=== PATIENT | female | born 1960 | race Caucasian/White ===

== ENCOUNTER 2016-04-10 10:51 | Day surgery (SDC) | payer OTHER ==
[2016-04-10] MEDS ORDERED: PEPCID ONE (11:17)
[2016-04-10] MEDS ORDERED: LR 1,000 ML ONE ×2 (11:17→15:42)
[2016-04-10] MEDS ORDERED: REGLAN ONE (11:17)
[2016-04-10] MEDS ORDERED: KEFZOL 1 GM/D5W 50 ML ONE (11:18)
[2016-04-10] MEDS ORDERED: TRANSDERM-SCOP ONE (11:33)
[2016-04-10] MEDS ORDERED: NAROPIN 0.5% ONE (12:17)
[2016-04-10] MEDS ORDERED: VERSED ONE (12:17)
[2016-04-10] MEDS ORDERED: DIPRIVAN 1% ONE (14:58)
[2016-04-10] MEDS ORDERED: FENTANYL ONE (14:59)
[2016-04-10] MEDS: MORPHINE ONE ×4 (15:14→15:36)
--- NOTE | 2016-04-10 15:25 | OPERATIVE NOTE ---
PROCEDURE DATE: 04/10/2016 PREOPERATIVE DIAGNOSES: 1. Right shoulder impingement syndrome. 2. Acromioclavicular degenerative joint disease. 3. Rotator cuff tear. POSTOPERATIVE DIAGNOSES: 1. Right shoulder impingement syndrome. 2. Acromioclavicular degenerative joint disease. 3. Rotator cuff tear. 4. Labral fraying. 5. Tear of the anterior labrum. PROCEDURE PERFORMED: Right shoulder arthroscopy with subacromial decompression, distal clavicle resection, rotator cuff repair arthroscopically, and labral debridement arthroscopically. SURGEON: Deon Piper MD [employer] CONSULTANT: MATY Adams ANESTHESIA: General. COMPLICATIONS: None. BLOOD LOSS: Minimal. DESCRIPTION OF PROCEDURE: The patient was brought to the operating suite and placed in supine position. After successful anesthesia of general anesthesia, the patient was placed in the left lateral decubitus position with the right shoulder up. The right shoulder was then prepped and draped in the usual sterile fashion. Through the posterior arthroscopy portal, the glenohumeral joint was serially examined. She was found to have significant labral fraying with a tear of the anterior labrum at the Frakes complex. This was non-repairable. Therefore, using the shaver through an anterior portal, the labral fraying and labral tear were debrided with the shaver back to a stable labrum. The undersurface of the rotator cuff supraspinatus tendon was also found to have a tear and this was debrided with a shaver as well. The scope was then moved to the subacromial space and then, through a lateral portal, with the ArthroCare wand, shaver, and a aubrie, subacromial decompression was performed back to flush with the posterior acromion. Then, through the anterior portal, with the ArthroCare wand, shaver, and a aubrie, the distal clavicle was resected a centimeter. Once this was completed, the insertion site for the rotator cuff was prepared with a shaver and then a 5.5 Cochran and Nephew suture anchor was placed with a FiberTape and a FiberWire suture. Once this was placed, these sutures were passed through the rotator cuff from anterior to posterior and then the UltraBraid sutures were then tied arthroscopically and then 1 of the UltraBraid sutures and the anterior UltraBraid tape were pulled laterally and secured with a SwiveLock anterolaterally. Once this was in good position, the suture ends were clipped. This was repeated posterolaterally for the other UltraBraid suture and UltraBraid tape. Excellent repair was obtained. The incisions were closed with interrupted nylon after exsanguinating the shoulder. The patient underwent a scalene block preoperatively. She tolerated the procedure well without complication. At the end of the procedure, all counts were correct x2. The patient was transferred to the recovery room in stable condition.
[2016-04-10] MEDS ORDERED: NORCURON ONE (15:41)
[2016-04-10] MEDS ORDERED: ZOFRAN ONE (15:41)
[2016-04-10] MEDS ORDERED: NEOSTIGMINE ONE (15:41)
[2016-04-10] MEDS ORDERED: QUELICIN (DOSE) ONE (15:42)
[2016-04-10] MEDS ORDERED: ROBINUL ONE (15:42)
[2016-04-10] MEDS ORDERED: DECADRON ONE (15:42)
[2016-04-10] MEDS ORDERED: LR 500 ML ONE (15:55)
[2016-04-10] MEDS ORDERED: NORCO-10 ONE (16:10)
[2016-04-10 17:42] VITALS: BP 118/78
== END 2016-04-10 17:15 | disposition home or self-care (01) ==
LOC: OPS 10:51
PROVIDERS: ATTEND Orthopaedic Surgery
DX: M75.101 Unspecified rotator cuff tear or rupture of right shoulder, not specified as traumatic (principal); M19.011 Primary osteoarthritis, right shoulder; M25.811 Other specified joint disorders, right shoulder
CPT/HCPCS: J0330; J0690; J1100; J2250; J2270; J2405; J2795; J3010; J7120; J2710